=== PATIENT | male | born 1995 | race African-American/Black ===

== ENCOUNTER 2022-03-20 19:07 | Emergency (ER) | payer OTHER, SELFPAY ==
[2022-03-20 19:18] VITALS: BP 137/90; PULSE 90; O2SAT 97; BMI 29.7
[2022-03-20 19:24] VITALS: BP 123/70; PULSE 91; RESP 23; TEMP 36.6; O2SAT 95
--- NOTE | 2022-03-20 19:31 | ED.OVERDOSE ---
HPI - Overdose General Chief Complaint: Overdose Stated Complaint: Overdose Time Seen by Provider: 03/20/22 19:15 Source: patient and other (Girlfriend-Alvina) Mode of arrival: EMS Limitations: no limitations History of Present Illness HPI Narrative: 26-year-old male brought to emergency department for evaluation of an overdose. The patient states was on the bus and he used 1 bag heroin named Reena Ernst. According to his girlfriend, they were riding on the bus and the patient inserted the needle into his arm and pushed the plunger down any when out immediately. Police were called and he was given intranasal Narcan 8 mg with good response. The patient is now awake, he is able to provide information. He told me that he was on methadone and stop using methadone approximately 6 months ago because he want to get off opiates. According to his girlfriend the patient has accidentally overdosed at least 6 times this year on injectable opiates. The patient denied being ill in any way prior to using the injectable opiate. The patient states that he is homeless and he lives in a tent in [place]. complaint: accidental overdose Onset (ago): minute(s) (30) Related Data Allergies Allergy/AdvReac Type Severity Reaction Status Date / Time No Known Allergies Allergy Verified 03/20/22 21:47 Review of Systems Review of Systems: Yes all other systems are reviewed and are negative [facility] Past Medical History [facility] Narrative: Past medical history: None. Social history: The patient does smoke cigarettes. He states that he rarely drinks alcohol. He states that he injects opiates intermittently and not daily. Social History Social History Smoked in Last 30 Days: No Use of substances other than those prescribed or required for medical reasons: Yes Substance Use Type: Crack/Cocaine and Heroin Substance Use Frequency: Monthly Last Used Substance: Just Prior to Admission Advance Directives: No Advance Directives Information Provided: No Physical Exam Vital Signs: Vital Signs: Last Vital Signs Temp 97.9 F 03/20/22 19:24 Pulse 91 03/20/22 19:24 Resp 23 H 03/20/22 19:24 BP 123/70 03/20/22 19:24 Pulse Ox 95 03/20/22 19:24 O2 Del Method 03/20/22 19:24 BMI result Body Mass Index 29.7 Const: Other: Awake male patient, answers questions appropriately, does not appear to be in distress HEENT: Head: Yes normal to inspection, Yes normocephalic and Yes atraumatic Ears: external ears normal General nose exam: Normal external nose present Face and sinus: Yes normal facial exam Mouth: Normal oral and palatal mucosa present Throat: Yes posterior oropharynx normal Eyes: General: appearance normal, both eyes and all related structures Pupils: Equal, round and reactive pupils present Neck: Neck: Yes normal visual inspection, Yes no lymphadenopathy, Yes trachea midline and Yes supple Chest: Chest palpation & inspection: normal inspection of the chest and normal palpation of entire chest wall Resp: Effort & Inspection: normal respiratory effort and able to speak in complete sentences Auscultation: clear to auscultation bilaterally Cardio: Rate: regular rate Rhythm: regular rhythm Heart sounds: S1 normal heart sound present, S2 normal heart sound present and no murmurs GI: Inspection: Yes normal to inspection Palpation (GI): Soft to palpation, nontender and no guarding Auscultation: normal bowel sounds : General: Yes no CVA tenderness Back/Spine/Pelvis: Back: no CVA tenderness Skin: General skin exam: no rashes or lesions noted Neuro: Cranial nerves: Yes CN's II-XII intact bilaterally and Yes Equal, round and reactive pupils present Cognition (Neuro): normal cognition Motor exam (neuro): 5/5 motor strength present throughout Extrem: General: Yes normal to inspection Psych: Appearance: grossly normal Speech and movement: Normal speech and movement present Affect: normal affect Attitude: cooperative Thought process: Normal thought process present Thought content: Normal thought content present Course Course Course Narrative: 26-year-old male patient who is brought to emergency department by ambulance for evaluation of unintentional opiate overdose. The patient did inject 1 bag of opiates while riding on the bus and immediately after injecting it he loss consciousness. Please give the patient intranasal Narcan 4 mg x 2 doses with good affect. The patient is now awake and cooperative, he was placed on a cardiac, O2 saturation and respiratory monitor. Patient will be observed for 3 hours for signs of narcosis/ respiratory failure. 21:44: The patient is awake and alert, he has had no episodes of respiratory depression during his observation period. Patient was evaluated by our care team for a SUDE evaluation. At this time the patient does not want to get into a detox program for start a methadone or Suboxone maintenance program. The patient lives in a tent in [place], there are no bus is running at this time. The patient will be discharged to the waiting room . Discharge Plan Discharge Clinical Impression: Opiate overdose Qualifiers: Encounter type: initial encounter Injury intent: accidental or unintentional Qualified Code(s): T40.601A - Poisoning by unspecified narcotics, accidental (unintentional), initial encounter Patient Disposition: Home, Self-Care Additional Instructions: Your are being discharged home with intranasal Narcan. If you are going to continue to use heroin, you should make sure that there is a sober person with you that is not using drugs and that this person can administer intranasal Narcan in the event that you stop breathing. Follow-up with your doctor in 2 days. Please return to the emergency department if your symptoms get worse or if you develop any symptoms that are concerning to you. Interventions: [place]-Suicide Risk Severity Scale Last Done: 03/20/22 19:24
--- NOTE | 2022-03-20 19:52 | HO.SUDE ---
SUDE Patient is a 26 year old [place]an speaking male who [place] [facility] [place] after an accidental overdose. This va underwriter met with patient to discuss substance use and treatment options. Patient was difficult to engage however would awake when this va underwriter asked questions. Patient reports he was previously on methadone however recently got off it due to not wanting to be on opiates. Patient reports he is not interested in getting back on MAT at this time. Discussed ATS with patient. Patient reports he is not interested in accessing treatment at this time. Discussed harm reduction including tolerance and access to naloxone. Patient acknowledged and reports no questions at this time. Discussed case with ED provider. Girlfriend reported they are currently homeless and that patient has overdosed six times. This write provided patient with contact information for this va underwriter in the event that he is interested in treatment after discharge. This va underwriter will follow up with patient to offer services again if he is still in the hospital tomorrow morning. Recovery Support Team available as needed.
[2022-03-20] MEDS: Naloxone HCl Nasal TAKE HOME 4 MG SPRAY NOSTRILALT ×2 (22:20)
[2022-03-20] MEDS: Acetaminophen 325 MG TABLET 975 MG PO (22:20)
[2022-03-20] MEDS: Ondansetron ODT 4 MG TAB.RAPDIS TRANSLINGU (22:20)
--- NOTE | 2022-03-20 22:21 | PC.NURSE ---
Pt aox4. Breaths are even and unlabored. Friend at the bedside. Discharge instructions reviewed with pt and pts friend. Narcan 4mg intranasal x2 provided to pt. Instruction on use provided to pt and pts friend. Both verbalize understanding discharge instructions and narcan usage.
== END 2022-03-20 22:27 | disposition home or self-care (01) ==
PROVIDERS: Emergency Provider Emergency Medicine Emergency Medical Services
DX: T40.1X1A Poisoning by heroin, accidental (unintentional), initial encounter (principal); Y92.811 Bus as the place of occurrence of the external cause; F11.20 Opioid dependence, uncomplicated
CPT/HCPCS: 99284; 99285